=== PATIENT | female | born 1945 | race Caucasian/White ===

== ENCOUNTER 2018-02-28 13:09 | Outpatient (CLI) | payer MEDICARE ==
--- NOTE | 2018-02-28 14:36 | BD ---
DEXA BONE SCAN: HISTORY: Age-related osteoporosis, asymptomatic in menstrual state. Bone mineral density evaluation is performed using a hologic bone mineral density unit. COMPARISON: Comparison study is not available. FINDINGS: Lumbar Spine: BMD (g/cm2) L1 0.79 T-Score: -1.9 Z-Score: +0.1 L2 0.88 T-Score: -1.4 Z-Score: +0.7 L3 0.91 T-Score: -1.6 Z-Score: +0.7 L4 0.90 T-Score: -1.4 Z-Score: +0.9 L1-L4 0.87 T-Score: -1.6 Z-Score: +0.6 Findings compatible with osteopenia. Femoral Neck: 0.70 T-Score: -1.3 Z-Score: +0.5 Total Femur: 0.90 T-Score: -0.3 Z-Score: +1.2 Findings compatible with osteopenia. The patient has the following FRAX score measurements: 10-year major osteoporotic fracture risk of 9.7%. Hip fracture risk of 1.3%. Impression: The patient has a mild increased risk of osteoporotic fractures. POS: [facility]
== END 2018-02-28 13:10 | disposition home or self-care (01) ==
LOC: BICMAMMO 13:09
PROVIDERS: ATTEND Family Medicine
DX: Z12.31 Encounter for screening mammogram for malignant neoplasm of breast (principal); Z00.00 Encounter for general adult medical examination without abnormal findings; N95.1 Menopausal and female climacteric states
CPT/HCPCS: 77063; 77067; 77080

== ENCOUNTER 2019-12-02 09:49 | Outpatient (CLI) | payer MEDICARE ==
--- NOTE | 2019-12-02 13:56 | MMO ---
Bilateral MAMMO Bilat Screen [facility]. CLINICAL HISTORY: Patient is 74 years old and is seen for screening. The patient has no family history of breast cancer. The patient has no personal history of cancer. VIEWS: The views performed were: bilateral craniocaudal with tomosynthesis and bilateral mediolateral oblique with tomosynthesis. FILMS COMPARED: The present examination has been compared to a prior imaging study performed at [facility] on 02/28/2018. This study has been interpreted with the assistance of computer-aided detection. MAMMOGRAM FINDINGS: There are scattered fibroglandular densities. Benign calcifications are noted bilaterally. There are no suspicious masses, suspicious calcifications, or new areas of architectural distortion. IMPRESSION: THERE IS NO MAMMOGRAPHIC EVIDENCE OF MALIGNANCY. A ROUTINE FOLLOW-UP MAMMOGRAM IN 1 YEAR IS RECOMMENDED. THE RESULTS OF THIS EXAM WERE SENT TO THE PATIENT. ACR BI-RADS Category 2 - Benign finding MAMMOGRAPHY NOTE: 1. A negative mammogram report should not delay a biopsy if a dominant of clinically suspicious mass is present. 2. Approximately 10% to 15% of breast cancers are not detected by mammography. 3. Adenosis and dense breasts may obscure an underlying neoplasm. Reported by: BOBBY FORMAN MD Electonically Signed: [id number]
== END 2019-12-02 09:50 | disposition home or self-care (01) ==
LOC: BICMAMMO 09:49
PROVIDERS: ATTEND Physician Assistant Medical
DX: Z12.31 Encounter for screening mammogram for malignant neoplasm of breast (principal)
CPT/HCPCS: 77063; 77067

== ENCOUNTER 2021-10-06 09:49 | Outpatient (CLI) | payer MEDICARE | END 2021-10-06 09:50 | disposition home or self-care (01) | LOC: BICMAMMO 09:49 | PROVIDERS: ATTEND Family Medicine | DX: Z12.31 Encounter for screening mammogram for malignant neoplasm of breast (principal) | CPT/HCPCS: 77063; 77067 ==

== ENCOUNTER 2022-11-23 08:51 | Outpatient (CLI) | payer MEDICARE | END 2022-11-23 08:52 | disposition home or self-care (01) | LOC: BICMAMMO 08:51 | PROVIDERS: ATTEND Family Medicine | DX: Z12.31 Encounter for screening mammogram for malignant neoplasm of breast (principal); Z13.820 Encounter for screening for osteoporosis; M85.89 Other specified disorders of bone density and structure, multiple sites; Z78.0 Asymptomatic menopausal state | CPT/HCPCS: 77063; 77067; 77080 ==

== ENCOUNTER 2022-11-23 09:55 | Outpatient (CLI) | payer MEDICARE | END 2022-11-23 09:56 | disposition home or self-care (01) | LOC: RAD 09:55 | PROVIDERS: ATTEND Family Medicine | DX: R05.3 Chronic cough (principal) | CPT/HCPCS: 71046 ==